=== PATIENT | male | born 1975 ===

== ENCOUNTER 2018-09-04 18:09 | Inpatient (IN) | payer OTHER ==
[2018-09-04 18:39] LABS: BASO # 0.1 K/uL (0.0-0.2); BASO % 0.9 % (0.0-2.0); EOS # 0.2 K/uL (0.0-0.7); EOS % 1.6 % (0.0-4.0); HEMOGLOBIN 15.2 g/dL (12.0-18.0); LYMPH # 3.2 K/uL (1.0-4.3); LYMPH % 31.8 % (20.0-40.0); MEAN CELL VOLUME 86.8 fl (80.0-94.0); MEAN CORPUSCULAR HEMOGLOBIN 29.9 pg (27.0-31.0); MEAN CORPUSCULAR HGB CONC 34.5 g/dL (33.0-37.0); MEAN PLATELET VOLUME 7.5 fl (7.2-11.7); MONO # 0.6 K/uL (0.0-0.8); MONO % 5.8 % (0.0-10.0); NEUT % 59.9 % (50.0-75.0); NRBC % 0.1 % (0.0-0.0); RBC 5.08 Mil/uL (4.40-5.90); RED CELL DISTRIBUTION WIDTH 13.3 % (11.5-14.5); WHITE BLOOD COUNT 10.1 K/uL (4.8-10.8)
[2018-09-04] MEDS ORDERED: Sodium Chloride 0.9% 1,000 ML IV STA (18:44)
[2018-09-04 18:48] LABS: BLOOD UREA NITROGEN 15 mg/dl (9-20); CALCIUM 9.9 mg/dL (8.4-10.2); GFR NON-AFRICAN AMERICAN > 60
[2018-09-04 19:15] LABS: BARBITURATES, UR NEGATIVE (NEGATIVE); BENZODIAZEPINES, UR NEGATIVE (NEGATIVE); OPIATES, UR NEGATIVE (NEGATIVE); PHENCYCLIDINE, UR NEGATIVE (NEGATIVE)
--- NOTE | 2018-09-04 19:48 | ED PDOC ---
HPI:STROKE - Time Time: 18:15 - Historian Historian: Patient - Chief Complaint Chief Complaint: Numbness (left facial numbness) - Onset Date: 09/04/18 Time: 18:15 - Location Locate left: Face - Notes: Notes:: Narinder Cardenas is a 43 year old male with no past medical history who is presenting to the ED for evaluation of left facial numbness onset 10 minutes prior to arrival. Patient also complains of a headache since this morning, with pain localized to the back of the head. He states that the left side of his face feels numb and heavy. Patient denies any weakness of extremities, dizziness, or confusion. Of note, patient was recently incarcerated and has not followed up with a doctor since then. Patient also attends rehab for a pinched nerve in the right thigh; he has occasional weakness to both legs. Patient denies any sick contacts or recent illness. PMD: none NIHSS Stroke Scale - Date/Time Evaluation Performed Date Performed: 09/04/18 - How Severe is the Stroke Level of Consciousness: 0=Alert LOC to Questions: 0=Both comments correct LOC to commands: 0=Obeys both correctly Best Gaze: 0=Normal Visual: 0=No visual loss Facial: 1=Minor asymmetry (numbness to left side of face) Motor Arm - Left: 0=No drift Motor Arm - Right: 0=No drift Motor Leg - Left: 0=No drift (Proprioception intact, left leg drift however at baselines has leg weakness unclear if new) Motor Leg - Right: 0=No drift Limb Ataxia: 0=Absent Sensory: 0=Normal Best Language: 0=No aphasia Dysarthia: 0=Normal articulation Extinction & Inattention (Neglect): 0=Normal, no object Score: 1 rTPA Inclusion/Exclusion - Refusal of Treatment Patient Refused Treatment: No - Inclusion Criteria for Altepase Patient is 18 years or Older: Yes The Clinical Diagnosis of Ischemic Stroke That is Causing a Potentially Disabling Neurological Deficit: No Time of Onset is Well Established to be Less Than 270 Minute Before Treatment Would Begin: No Risk/Benefit Discussed With Patient/Family Member Present: Yes - Warning to TPA With Conditions Following Conditions Weighed Against Anticipated Benefit: Yes Condition: Stroke Serevity Too Mild (Most likely not a stroke. Symptoms are subjective without findings on physical exam.) Past Medical History Reviewed: Historical Data, Nursing Documentation, Vital Signs Vital Signs: Last Vital Signs Temp Pulse 61 09/04/18 19:21 Resp 16 09/04/18 19:21 BP 148/87 09/04/18 19:21 Pulse Ox 100 09/04/18 19:21 - Medical History PMH: No Chronic Diseases - Surgical History Surgical History: No Surg Hx - Family History Family History: States: Unknown Family Hx - Social History Current smoker - smoking cessation education provided: No Alcohol: None Drugs: Denies - Home Medications Home Medications: Ambulatory Orders Medication Instructions Recorded Acetaminophen/Hydrocodone Bi 1 tab PO PRN PRN 09/04/18 [Vicodin 300 mg-5 mg] Naproxen [Naprosyn] 500 mg PO PRN PRN 09/04/18 - Allergies Allergies/Adverse Reactions: Allergies Allergy/AdvReac Type Severity Reaction Status Date / Time ibuprofen Allergy RASH Verified 09/04/18 18:16 Review of Systems ROS Statement: Except As Marked, All Systems Reviewed And Found Negative Constitutional: Negative for: Other (recent illness) Neurological: Positive for: Numbness (left side of face), Headache. Negative for: Confusion, Dizziness Physical Exam - Reviewed Nursing Documentation Reviewed: Yes Vital Signs Reviewed: Yes - Physical Exam Appears: Positive for: Non-toxic, No Acute Distress Head Exam: Positive for: ATRAUMATIC, NORMAL INSPECTION, NORMOCEPHALIC Skin: Positive for: Normal Color, Warm, Dry Eye Exam: Positive for: EOMI, Normal appearance, PERRL ENT: Positive for: Normal ENT Inspection Neck: Positive for: Normal, Painless ROM, Supple Cardiovascular/Chest: Positive for: Regular Rate, Rhythm. Negative for: Murmur Respiratory: Positive for: Normal Breath Sounds. Negative for: Accessory Muscle Use, Respiratory Distress Gastrointestinal/Abdominal: Positive for: Normal Exam, Soft. Negative for: Tenderness Back: Positive for: Normal Inspection Extremity: Positive for: Normal ROM. Negative for: Deformity, Swelling Neurologic/Psych: Positive for: Alert, sanitarian inspector II-XII (intact), Oriented. Negative for: Motor/Sensory Deficits - Laboratory Results Result Diagrams: 09/04/18 18:30 09/04/18 18:30 - ECG O2 Sat by Pulse Oximetry: 100 (RA) Pulse Ox Interpretation: Normal - Critical Care Total Time (In Min): 30 Medical Decision Making Medical Decision Making: Code Stroke called at 18:15 A/P: Work up for acute stroke --Labs, brain CT --Neurology Consult 19:00 --Spoke with Dr. Cali. Based on no findings on CT and no objective findings on physical; exam, most likely not a stroke. --TPA not warranted, will give medication for headache, aspirin, and BP meds as needed. --Reevaluate patient --Admission to medical service. --Per Dr. Cali, patient to have MRI tomorrow. ----- Scribe Attestation: Documented by, Ciera Mcmanus acting as a scribe for Stephanie Joe MD. Provider Scribe Attestation: All medical record entries made by the Scribe were at my direction and personall y dictated by me. I have reviewed the chart and agree that the record accurately reflects my personal performance of the history, physical exam, medical decision making, and the department course for this patient. I have also personally directed, reviewed, and agree with the discharge instructions and disposition. Disposition - Clinical Impression Clinical Impression: Headache - Patient ED Disposition Is Patient to be Admitted: Yes - Disposition Disposition Time: 19:35 Condition: GUARDED
[2018-09-05] MEDS ORDERED: Oxycodone/Acetaminophen 5/325 mg Tab PO PRN (01:59)
[2018-09-05] MEDS: Enoxaparin 40 mg Syringe SC SCH (09:46)
[2018-09-05] MEDS: Naproxen 500 MG TAB PO SCH ×2 (09:47→20:25)
--- NOTE | 2018-09-05 10:00 | CT ---
Date of service: 09/04/2018 PROCEDURE: CT HEAD WITHOUT CONTRAST. HISTORY: left facial and leg numbness COMPARISON: None available. TECHNIQUE: Axial computed tomography images were obtained through the head/brain without intravenous contrast. Radiation dose: Total exam DLP = 825.36 mGy-cm. This CT exam was performed using one or more of the following dose reduction techniques: Automated exposure control, adjustment of the mA and/or kV according to patient size, and/or use of iterative reconstruction technique. FINDINGS: HEMORRHAGE: No intracranial hemorrhage. BRAIN: No mass effect or edema. No atrophy or chronic microvascular ischemic changes. VENTRICLES: Unremarkable. No hydrocephalus. CALVARIUM: Unremarkable. PARANASAL SINUSES: Unremarkable as visualized. No significant inflammatory changes. MASTOID AIR CELLS: Unremarkable as visualized. No inflammatory changes. OTHER FINDINGS: None. IMPRESSION: No evidence of acute intracranial hemorrhage territorial infarct mass effect or midline shift. If clinically warranted and if the patient's symptoms persist further assessment by MRI diffusion-weighted images may be obtained. Preliminary report was submitted by [facility] at 6:30 p.m. on 09/04/2018
--- NOTE | 2018-09-05 14:29 | CP.PCM.HP ---
History of Present Illness - History of Present Illness History of Present Illness: CC: JOEL and Facial Numbness History of Present Illness; A 43 year old male with no past medical history who is presenting to the ED for evaluation of left facial numbness onset 10 minutes prior to arrival. Patient also complains of a headache since this morning, with pain localized to the back of the head. He states that the left side of his face feels numb and heavy. Patient denies any weakness of extremities, dizziness, or confusion. Of note, patient was recently incarcerated and has not followed up with a doctor since then. Patient also attends rehab for a pinched nerve in the right thigh; he has occasional weakness to both legs. Patient denies any sick contacts or recent illness. Present on Admission - Present on Admission Any Indicators Present on Admission: No Review of Systems - Review of Systems All systems: reviewed and no additional remarkable complaints except Review of Systems: as per HPI Past Patient History - Past Medical History & Family History Past Medical History?: No Past Family History: Reviewed and not pertinent - Past Social History Smoking Status: Never Smoked Alcohol: Social Drugs: Denies - CARDIAC Hx Cardiac Disorders: No - PULMONARY Hx Respiratory Disorders: No - NEUROLOGICAL Hx Neurological Disorder: No - HEENT Hx HEENT Problems: No - RENAL Hx Chronic Kidney Disease: No - ENDOCRINE/METABOLIC Hx Endocrine Disorders: No - HEMATOLOGICAL/ONCOLOGICAL Hx Blood Disorders: No - INTEGUMENTARY Hx Dermatological Problems: No - MUSCULOSKELETAL/RHEUMATOLOGICAL Hx Musculoskeletal Disorders: No Hx Falls: No - GENITOURINARY/GYNECOLOGICAL Hx Genitourinary Disorders: No - PSYCHIATRIC Hx Psychophysiologic Disorder: No Hx Substance Use: No - ANESTHESIA Hx Anesthesia: No Meds Allergies/Adverse Reactions: Allergies Allergy/AdvReac Type Severity Reaction Status Date / Time ibuprofen Allergy RASH Verified 09/04/18 18:16 Physical Exam - Constitutional Appears: Well, No Acute Distress - Head Exam Head Exam: ATRAUMATIC, NORMAL INSPECTION, NORMOCEPHALIC - Eye Exam Eye Exam: EOMI, Normal appearance, PERRL Pupil Exam: NORMAL ACCOMODATION, PERRL - ENT Exam ENT Exam: Mucous Membranes Moist, Normal Exam - Neck Exam Neck exam: Positive for: Normal Inspection - Respiratory Exam Respiratory Exam: Clear to Auscultation Bilateral, NORMAL BREATHING PATTERN - Cardiovascular Exam Cardiovascular Exam: REGULAR RHYTHM, +S1, +S2 - GI/Abdominal Exam GI & Abdominal Exam: Normal Bowel Sounds, Soft. absent: Tenderness - Extremities Exam Extremities exam: Positive for: normal capillary refill, normal inspection - Back Exam Back exam: NORMAL INSPECTION - Neurological Exam Neurological exam: Alert, CN II-XII Intact, Normal Gait, Oriented x3, Reflexes Normal - Psychiatric Exam Psychiatric exam: Normal Affect, Normal Mood - Skin Skin Exam: Dry, Intact, Normal Color, Warm Results - Vital Signs Recent Vital Signs: Last Vital Signs Temp 98.1 F 09/05/18 09:49 Pulse 67 09/05/18 09:49 Resp 18 09/05/18 09:49 BP 125/84 09/05/18 09:49 Pulse Ox 100 09/05/18 09:49 - Labs Result Diagrams: 09/04/18 18:30 09/04/18 18:30 Labs: Laboratory Results - last 24 hr 09/04/18 09/04/18 09/04/18 18:17 18:30 18:30 WBC 10.1 RBC 5.08 Hgb 15.2 Hct 44.1 MCV 86.8 MCH 29.9 MCHC 34.5 RDW 13.3 Plt Count 311 MPV 7.5 Neut % (Auto) 59.9 Lymph % (Auto) 31.8 [place] % (Auto) 5.8 Eos % (Auto) 1.6 Baso % (Auto) 0.9 Neut # (Auto) 6.0 Lymph # (Auto) 3.2 [place] # (Auto) 0.6 Eos # (Auto) 0.2 Baso # (Auto) 0.1 Sodium 140 Potassium 4.0 Chloride 103 Carbon Dioxide 30 Anion Gap 11 BUN 15 Creatinine 0.8 Est GFR ( Amer) > 60 Est GFR (Non-Af Amer) > 60 POC Glucose (mg/dL) 117 H Random Glucose 93 Calcium 9.9 Troponin I < 0.0120 Urine Opiates Screen Urine Methadone Screen Ur Barbiturates Screen Ur Phencyclidine Scrn Ur Amphetamines Screen U Benzodiazepines Scrn U Oth Cocaine Metabols U Cannabinoids Screen Alcohol, Quantitative < 10 09/04/18 18:40 WBC RBC Hgb Hct MCV MCH MCHC RDW Plt Count MPV Neut % (Auto) Lymph % (Auto) [place] % (Auto) Eos % (Auto) Baso % (Auto) Neut # (Auto) Lymph # (Auto) [place] # (Auto) Eos # (Auto) Baso # (Auto) Sodium Potassium Chloride Carbon Dioxide Anion Gap BUN Creatinine Est GFR ( Amer) Est GFR (Non-Af Amer) POC Glucose (mg/dL) Random Glucose Calcium Troponin I Urine Opiates Screen Negative Urine Methadone Screen Negative Ur Barbiturates Screen Negative Ur Phencyclidine Scrn Negative Ur Amphetamines Screen Negative U Benzodiazepines Scrn Negative U Oth Cocaine Metabols Negative U Cannabinoids Screen Negative Alcohol, Quantitative - Imaging and Cardiology CT scan - head Status: Report reviewed by me Additional comment: Date of service: 09/04/2018 PROCEDURE: CT HEAD WITHOUT CONTRAST. HISTORY: left facial and leg numbness COMPARISON: None available. TECHNIQUE: Axial computed tomography images were obtained through the head/brain without intravenous contrast. Radiation dose: Total exam DLP = 825.36 mGy-cm. This CT exam was performed using one or more of the following dose reduction techniques: Automated exposure control, adjustment of the mA and/or kV according to patient size, and/or use of iterative reconstruction technique. FINDINGS: HEMORRHAGE: No intracranial hemorrhage. BRAIN: No mass effect or edema. No atrophy or chronic microvascular ischemic changes. VENTRICLES: Unremarkable. No hydrocephalus. CALVARIUM: Unremarkable. PARANASAL SINUSES: Unremarkable as visualized. No significant inflammatory changes. MASTOID AIR CELLS: Unremarkable as visualized. No inflammatory changes. OTHER FINDINGS: None. IMPRESSION: No evidence of acute intracranial hemorrhage territorial infarct mass effect or midline shift. If clinically warranted and if the patient's symptoms persist further assessment by MRI diffusion-weighted images may be obtained. Chest x-ray Status: Report reviewed by me Additional comment: Date of service: 09/04/2018 PROCEDURE: CHEST RADIOGRAPH, 1 VIEW HISTORY: possible stroke COMPARISON: None available. FINDINGS: LUNGS: No evidence of focal infiltrate or consolidation in the lungs PLEURA: No pneumothorax or pleural fluid seen. CARDIOVASCULAR: Normal. OSSEOUS STRUCTURES: No significant abnormalities. VISUALIZED UPPER ABDOMEN: Normal. OTHER FINDINGS: None. IMPRESSION: Suboptimal study due to the patient's body habitus. No definite evidence of acute pulmonary disease. Assessment & Plan (1) Headache Status: Acute Priority: Medium (2) Difficulty with speech Status: Acute Priority: Medium (3) Left upper extremity numbness Status: Acute Priority: High (4) Left facial numbness Status: Acute Priority: Medium - Assessment and Plan (Free Text) Plan: ASA Statin Neuro-check Q4hrs MRI w/o & w Contrast Echo Carotid Doppler Fasting Lipid Profile HgA1C Neurology Consult Tylenol PRN
--- NOTE | 2018-09-05 16:17 | RAD ---
Date of service: 09/04/2018 PROCEDURE: CHEST RADIOGRAPH, 1 VIEW HISTORY: possible stroke COMPARISON: None available. FINDINGS: LUNGS: No evidence of focal infiltrate or consolidation in the lungs PLEURA: No pneumothorax or pleural fluid seen. CARDIOVASCULAR: Normal. OSSEOUS STRUCTURES: No significant abnormalities. VISUALIZED UPPER ABDOMEN: Normal. OTHER FINDINGS: None. IMPRESSION: Suboptimal study due to the patient's body habitus. No definite evidence of acute pulmonary disease.
--- NOTE | 2018-09-05 16:35 | CP.PCM.CON ---
History of Present Illness - History of Present Illness History of Present Illness: Neurology Consultation Note: Mr. 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 He asked his to help him to the bathroom, where he proceeded to use cold water and towels to wash his head and neck. Afterward, he had an episode of speech difficulty. He was brought in to the ED, where his symptoms started to resolve. Today, the patient is back to baseline and does not have any new complaints. However, he does still have the headache. He describes is at left occipital and temporal. It is a pulsating pain, but not associated with nausea, photophobia or phonophobia. It is a 7/10 in severity. Review of Systems - Constitutional Constitutional: As Per HPI - EENT Eyes: absent: As Per HPI, Blind Spots, Blurred Vision, Change in Vision, Decreased Night Vision, Diplopia, Discharge, Dry Eye, Exophthalmos, Floaters, Irritation, Itchy Eyes, Loss of Peripheral Vision, Pain, Photophobia, Requires Corrective Lenses, Sees Flashes, Spots in Vision, Tunnel Vision, Other Visual Disturbances, Loss of Vision, Other Ears: absent: As Per HPI, Decreased Hearing, Ear Discharge, Ear Pain, Tinnitus, Abnormal Hearing, Disequilibrium, Dizziness, Other Nose/Mouth/Throat: absent: As Per HPI, Epistaxis, Nasal Congestion, Nasal Discharge, Nasal Obstruction, Nasal Trauma, Nose Pain, Post Nasal Drip, Sinus Pain, Sinus Pressure, Bleeding Gums, Change in Voice, Dental Pain, Dry Mouth, Dysphagia, Halitosis, Hoarsness, Lip Swelling, Mouth Lesions, Mouth Pain, Odynophagia, Sore Throat, Throat Swelling, Tongue Swelling, Facial Pain, Neck Pain, Neck Mass, Other - Cardiovascular Cardiovascular: absent: As Per HPI, Acrocyanosis, Chest Pain, Chest Pain at Rest, Chest Pain with Activity, Claudication, Diaphoresis, Dyspnea, Dyspnea on Exertion, Edema, Irregular Heart Rhythm, Pain Radiating to Arm/Neck/Jaw, Leg Edema, Leg Ulcers, Lightheadedness, Orthopnea, Palpitations, Paroxysmal Nocturnal Dyspnea, Pedal Edema, Radiating Pain, Rapid Heart Rate, Slow Heart Rate, Syncope, Other - Respiratory Respiratory: absent: As Per HPI, Cough, Dyspnea, Hemoptysis, Dyspnea on Exertion, Wheezing, Snoring, Stridor, Pain on Inspiration, Chest Congestion, Excessive Mucous Production, Change in Mucous Color, Pain with Coughing, Other - Gastrointestinal Gastrointestinal: absent: As Per HPI, Abdominal Pain, Belching, Bloating, Change in Bowel Habits, Change in Stool Character, Coffee Ground Emesis, Constipation, Cramping, Diarrhea, Dyspepsia, Dysphagia, Early Satiety, Excessive Flatus, Fecal Incontinence, Heartburn, Hematemesis, Hematochezia, Loose Stools, Melena, Nausea, Odynophagia, Temesmus, Vomiting, Other - Genitourinary Genitourinary: absent: As Per HPI, Change in Urinary Stream, Difficulty Urinating, Dysuria, Flank Pain, Hematuria, Pyuria, Nocturia, Urinary Incontinence, Urinary Frequency, Urinary Hesitance, Urinary Urgency, Voiding Freq/Small Amts, Freq UTI, Hx Renal/Bladder Calculi, Hx /Renal Surgery, B ladder Distension, Other - Musculoskeletal Musculoskeletal: absent: As Per HPI, Abnormal Gait, Arthralgias, Atrophy, Back Pain, Deformity, Joint Swelling, Limited Range of Motion, Loss of Height, Muscle Cramps, Muscle Weakness, Myalgias, Neck Pain, Numbness, Radiating Pain into Limb, Stiffness, Tingling, Other - Integumentary Integumentary: absent: As Per HPI, Acne, Alopecia, Bleeding Lesions, Change in Hair, Change in Nails, Change in Pigmentation, Changing Lesions, Dry Skin, Erythema, Furuncle, Hirsutism, Lesions, New Lesions, Non-Healing Lesions, Photosensitivity, Pruritus, Rash, Skin Pain, Skin Ulcer, Sores, Striae, Swelling, Unusual Bruising, Wounds, Jaundice, Other - Neurological Neurological: As Per HPI - Psychiatric Psychiatric: absent: As Per HPI, Abnormal Sleep Pattern, Anhedonia, Anxiety, Auditory Hallucinations, Behavioral Changes, Change in Appetite, Change in Libido, Confusion, Depression, Difficulty Concentrating, Hallucinations, Homicidal Ideation, Hopelessness, Irritability, Memory Loss, Mood Swings, Panic Attacks, Paranoia, Suicidal Ideation, Visual Hallucinations, Tactile Hallucinations, Other - Endocrine Endocrine: absent: As Per HPI, Change in Body Appearance, Change in Libido, Cold Intolorance, Deepening of Voice, Excessive Sweating, Fatigue, Flushing, Heat Intolorance, Increase in Ring/Shoe/Hat Size, Palpitations, Polydipsia, Polyphagia, Polyuria, Other Past Patient History - Past Social History Alcohol: None Drugs: Denies - CARDIAC Hx Cardiac Disorders: No - PULMONARY Hx Respiratory Disorders: No - NEUROLOGICAL Hx Neurological Disorder: No - HEENT Hx HEENT Problems: No - RENAL Hx Chronic Kidney Disease: No - ENDOCRINE/METABOLIC Hx Endocrine Disorders: No - HEMATOLOGICAL/ONCOLOGICAL Hx Blood Disorders: No - INTEGUMENTARY Hx Dermatological Problems: No - MUSCULOSKELETAL/RHEUMATOLOGICAL Hx Musculoskeletal Disorders: No Hx Falls: No - GENITOURINARY/GYNECOLOGICAL Hx Genitourinary Disorders: No - PSYCHIATRIC Hx Psychophysiologic Disorder: No Hx Substance Use: No - ANESTHESIA Hx Anesthesia: No Meds Allergies/Adverse Reactions: Allergies Allergy/AdvReac Type Severity Reaction Status Date / Time ibuprofen Allergy RASH Verified 09/04/18 18:16 - Medications Medications: Current Medications Aspirin (Aspirin) 325 mg PO DAILY [facility] Last Admin: 09/05/18 09:47 Dose: 325 mg Enoxaparin Sodium (Lovenox) 40 mg SC DAILY [facility]; Protocol Last Admin: 09/05/18 09:46 Dose: 40 mg Naproxen (Naproxen) 500 mg PO Q12 [facility] Last Admin: 09/05/18 09:47 Dose: 500 mg Oxycodone/Acetaminophen (Percocet 5/325 Mg Tab) 1 tab PO Q6 PRN PRN Reason: Pain, moderate (4-7) Stop: 09/08/18 02:00 Physical Exam - Constitutional Appears: Well - Head Exam Head Exam: ATRAUMATIC, NORMAL INSPECTION, NORMOCEPHALIC - Eye Exam Eye Exam: EOMI, Normal appearance, PERRL - ENT Exam ENT Exam: Mucous Membranes Moist, Normal Exam - Respiratory Exam Respiratory Exam: Clear to Auscultation Bilateral, NORMAL BREATHING PATTERN - Cardiovascular Exam Cardiovascular Exam: REGULAR RHYTHM, +S1, +S2 - GI/Abdominal Exam GI & Abdominal Exam: Normal Bowel Sounds, Soft. absent: Tenderness - Rectal Exam Rectal Exam: Deferred - Back Exam Back exam: NORMAL INSPECTION - Neurological Exam Neurological exam: Alert, CN II-XII Intact, Normal Gait, Oriented x3, Reflexes Normal - Psychiatric Exam Psychiatric exam: Normal Affect, Normal Mood - Skin Skin Exam: Dry, Intact, Normal Color, Warm Results - Vital Signs Recent Vital Signs: Last Vital Signs Temp 98.1 F 09/05/18 09:49 Pulse 67 09/05/18 09:49 Resp 18 09/05/18 09:49 BP 125/84 09/05/18 09:49 Pulse Ox 100 09/05/18 15:30 - Labs Result Diagrams: 09/04/18 18:30 09/04/18 18:30 Labs: Laboratory Results - last 24 hr 09/04/18 09/04/18 09/04/18 18:17 18:30 18:30 WBC 10.1 RBC 5.08 Hgb 15.2 Hct 44.1 MCV 86.8 MCH 29.9 MCHC 34.5 RDW 13.3 Plt Count 311 MPV 7.5 Neut % (Auto) 59.9 Lymph % (Auto) 31.8 [place] % (Auto) 5.8 Eos % (Auto) 1.6 Baso % (Auto) 0.9 Neut # (Auto) 6.0 Lymph # (Auto) 3.2 [place] # (Auto) 0.6 Eos # (Auto) 0.2 Baso # (Auto) 0.1 Sodium 140 Potassium 4.0 Chloride 103 Carbon Dioxide 30 Anion Gap 11 BUN 15 Creatinine 0.8 Est GFR ( Amer) > 60 Est GFR (Non-Af Amer) > 60 POC Glucose (mg/dL) 117 H Random Glucose 93 Calcium 9.9 Troponin I < 0.0120 Urine Opiates Screen Urine Methadone Screen Ur Barbiturates Screen Ur Phencyclidine Scrn Ur Amphetamines Screen U Benzodiazepines Scrn U Oth Cocaine Metabols U Cannabinoids Screen Alcohol, Quantitative < 10 09/04/18 18:40 WBC RBC Hgb Hct MCV MCH MCHC RDW Plt Count MPV Neut % (Auto) Lymph % (Auto) [place] % (Auto) Eos % (Auto) Baso % (Auto) Neut # (Auto) Lymph # (Auto) [place] # (Auto) Eos # (Auto) Baso # (Auto) Sodium Potassium Chloride Carbon Dioxide Anion Gap BUN Creatinine Est GFR ( Amer) Est GFR (Non-Af Amer) POC Glucose (mg/dL) Random Glucose Calcium Troponin I Urine Opiates Screen Negative Urine Methadone Screen Negative Ur Barbiturates Screen Negative Ur Phencyclidine Scrn Negative Ur Amphetamines Screen Negative U Benzodiazepines Scrn Negative U Oth Cocaine Metabols Negative U Cannabinoids Screen Negative Alcohol, Quantitative Assessment & Plan (1) Left facial numbness Status: Resolved (2) Difficulty with speech Status: Resolved (3) Headache Assessment and Plan: His symptoms are consistent with a complicated migraine. Treatment will be initiated. However, due to his history of previous seizures, further work-up is needed. I recommend the followin. Telemetry 2. MRI brain without contrast when possible. 3. Echocardiogram with bubble study 4. EEG awake and drowsy for 30 minutes. 5. Check hemoglobin A-1 C, lipid panel, ESR, CRP, JERED, B12, folate, TSH, vitamin D levels 6. Treat headache with Magnesium Sulfate 2 grams, Decadron 10 mg and Depakote 500 mg IV ONCE. Aspirin 81 mg daily 7. Q 4 hour neuro-checks. 8. May begin to normalize BP Please do not hesitate to call back with any new developments, data updates or questions. Thank you for the opportunity to participate in the care of this patient. Status: Acute
--- NOTE | 2018-09-05 17:07 | CARD ---
APPROVED REPORT Date of service: 09/04/2018 EKG Measurement Heart [id number] <Conclusion> Normal sinus rhythm Early repolarization Otherwise normal ECG
[2018-09-06] MEDS ORDERED: Gadodiamide 287 MG/ML VIAL (15ML) IV ONE (10:41)
[2018-09-06] MEDS: Enoxaparin 40 mg Syringe SC SCH (11:35)
[2018-09-06] MEDS: Naproxen 500 MG TAB PO SCH ×2 (11:35→20:55)
[2018-09-06] MEDS ORDERED: Dexamethasone 10 MG in Sodium Chloride 0.9% 50 ML IVPB ONE (12:13)
[2018-09-06] MEDS ORDERED: Magnesium Sulfate 2 gm/50 ml 2 GM/50 ML BAG IVPB ONE (12:13)
[2018-09-06] MEDS ORDERED: Valproate 500 MG in Sodium Chloride 0.9% 100 ML IVPB ONE (12:30)
--- NOTE | 2018-09-06 14:25 | MRI ---
Date of service: 09/06/2018 PROCEDURE: MR CERVICAL SPINE WITHOUT CONTRAST HISTORY: JOEL and Numbness to the Face, and LE Weakness COMPARISON: None available. TECHNIQUE: Multiecho multiplanar sequences were performed through the cervical spine without the use of intravenous contrast. FINDINGS: Straightened cervical curvature. Craniocervical junction unremarkable. Vertebral body heights preserved. Dark marrow signal is appreciated throughout the cervical spine in all sequences, which can be seen in anemia or other hematopoietic disorders. Clinically correlate further. No edema is appreciated Normal cervical cord. No paraspinal abnormality. C2-C3: No disc herniation, spinal canal stenosis or neural foraminal narrowing. C3-C4: No disc herniation, spinal canal stenosis or neural foraminal narrowing. C4-C5: No disc herniation, spinal canal stenosis or neural foraminal narrowing. C5-C6: No disc herniation, spinal canal stenosis or neural foraminal narrowing. C6-C7: No disc herniation, spinal canal stenosis or neural foraminal narrowing. Limited C6-7 generalized disc bulging without stenosis resulting. C7-T1: No disc herniation, spinal canal stenosis or neural foraminal narrowing. OTHER FINDINGS: None. IMPRESSION: No disc herniation, central canal or neural foraminal stenosis identified. Straightened curvature evident. Limited C6-7 disc bulge. Dark matter signal cross all sequences may indicate anemia or other hematopoetic disorder. Clinically correlate further. No additional findings.
--- NOTE | 2018-09-06 14:26 | MRI ---
Date of service: 09/06/2018 PROCEDURE: MRI BRAIN WITH AND WITHOUT CONTRAST HISTORY: Numbness and JOEL, and LE weakness COMPARISON: Noncontrast head CT 09/04/2018. TECHNIQUE: Multiplanar, multisequence MR images of the brain were obtained with and without intravenous contrast enhancement. FINDINGS: HEMORRHAGE: None DWI: No evidence of an acute or early subacute infarction. BRAIN PARENCHYMA: There are multifocal areas of sub cm long TR hyperintensities scattered throughout the subcortical and deep white matter of the bilateral frontal lobes and minimally affect the bilateral parietal lobes with borderline involvement of the bilateral sides of the body of the corpus callosum. No abnormal enhancement is seen throughout the brain including the posterior fossa contents. Nevertheless, this pattern is suspicious for potential demyelination though it may result from headaches or hypertension, Lyme disease vasculitis as well as other etiologies. No mass effect or suspicious extra-axial collection appreciated. ENHANCEMENT: No abnormal intracranial enhancement. VENTRICLES: Unremarkable. No hydrocephalus. CRANIUM: Unremarkable. ORBITS: Grossly unremarkable. PARANASAL SINUSES/MASTOIDS: Clear VASCULAR SYSTEM: Skull base flow voids intact. OTHER FINDINGS: None . IMPRESSION: 1. Abnormal white matter changes are identified in the bilateral frontal greater than parietal lobes of the pattern that is nonspecific but could reflect demyelination, migraine headaches, hypertension, Lyme disease vasculitis and others. Further clinical correlation is advised. 2. No abnormal intracranial enhancement. 3. No acute or subacute brain infarction mass effect or hydrocephalus.
[2018-09-06 21:09] LABS: LYME IGG NEGATIVE (NEGATIVE)
[2018-09-06 22:10] LABS: FOLATE 10.3 ng/mL
[2018-09-07] MEDS: Enoxaparin 40 mg Syringe SC SCH (09:52)
[2018-09-07] MEDS: Naproxen 500 MG TAB PO SCH ×2 (09:53→21:35)
--- NOTE | 2018-09-07 11:42 | CP.PCM.PN ---
Subjective - Date & Time of Evaluation Date of Evaluation: 09/06/18 Time of Evaluation: 15:25 Objective - Vital Signs/Intake and Output Vital Signs (last 24 hours): Temp Pulse Resp BP Pulse Ox 97.7 F 82 18 133/81 95 09/07/18 08:30 09/07/18 08:30 09/07/18 08:30 09/07/18 08:30 09/07/18 08:30 - Medications Medications: Current Medications Aspirin (Aspirin) 325 mg PO DAILY [facility] Last Admin: 09/07/18 09:52 Dose: 325 mg Enoxaparin Sodium (Lovenox) 40 mg SC DAILY [facility]; Protocol Last Admin: 09/07/18 09:52 Dose: 40 mg Naproxen (Naproxen) 500 mg PO Q12 [facility] Last Admin: 09/07/18 09:53 Dose: 500 mg Oxycodone/Acetaminophen (Percocet 5/325 Mg Tab) 1 tab PO Q6 PRN PRN Reason: Pain, moderate (4-7) Stop: 09/08/18 02:00 Last Admin: 09/05/18 18:15 Dose: 1 tab - Labs Labs: 09/04/18 18:30 09/04/18 18:30 Assessment and Plan (1) Headache Status: Acute (2) Difficulty with speech Status: Acute (3) Left upper extremity numbness Status: Acute (4) Left facial numbness Status: Acute
--- NOTE | 2018-09-07 15:31 | CARD ---
APPROVED REPORT Date of service: 09/07/2018 EXAM: Two-dimensional and M-mode echocardiogram with Doppler, color Doppler with bubble study. Other Information Quality : GoodRhythm : NSR INDICATION Fascial Numbness Echo Enhancing Agent Indication: Rule Out Septal Defect Agent/Amount Used: Agitated Saline 2D DIMENSIONS IVSd1.30 (0.7-1.1cm)LVDd4.24 (3.9-5.9cm) LVOT Diameter2.20 (1.8-2.4cm)PWd1.11 (0.7-1.1cm) IVSs1.60 (0.8-1.2cm)LVDs2.35 (2.5-4.0cm) FS (%) 44.6 %PWs1.44 (0.8-1.2cm) M-Mode DIMENSIONS Left Atrium (MM)3.83 (2.5-4.0cm)IVSd1.02 (0.7-1.1cm) Aortic Root3.39 (2.2-3.7cm)LVDd4.94 (4.0-5.6cm) Aortic Cusp Exc.2.34 (1.5-2.0cm)PWd1.52 (0.7-1.1cm) IVSs1.93 cmFS (%) 48 % LVDs2.56 (2.0-3.8cm)PWs1.60 cm Aortic Valve AoV Peak Rwzkrinr045.4cm/sAoV VTI22.0cmAO Peak GR.7mmHg LVOT Peak Sqeiwzmj572.5cm/sLVOT VTI19.81cmAO Mean GR.4mmHg ABDULLAHI (VMAX)1.02wc6WYQ (VTI)1.71cm2 Mitral Valve MV E Vfegadqu39.8cm/sMV DECEL DNVL240kdPD A Esgvgvbs77.7cm/s MV HQA96iyY/A ratio1.1MVA (PHT)2.79cm2 TDI Lateral E' Peak V13.77cm/sMedial E' Peak V7.41cm/sE/Lateral E'5.1 E/Medial E'9.6 LEFT VENTRICLE The left ventricle is normal size. There is normal left ventricular wall thickness. The left ventricular systolic function is normal. The estimated ejection fraction is 60-65% No regional wall motion abnormalities noted.. The left ventricular diastolic function is normal. No left ventricle thrombus noted on this study. There is no ventricular septal defect visualized. There is no left ventricular aneurysm. There is no mass noted in the left ventricle. RIGHT VENTRICLE The right ventricle is normal size. There is normal right ventricular wall thickness. The right ventricular systolic function is normal. ATRIA The left atrium size is normal. The right atrium size is normal. The interatrial septum is intact with no evidence for an atrial septal defect. Consider KENYATTA if there is suspicion for PFO. AORTIC VALVE The aortic valve is normal in structure. No aortic regurgitation is present. There is no aortic valvular stenosis. There is no aortic valvular vegetation. MITRAL VALVE The mitral valve is normal in structure. There is no evidence of mitral valve prolapse. There is no mitral valve stenosis. There is no mitral valve regurgitation noted. TRICUSPID VALVE The tricuspid valve is normal in structure. There is no tricuspid valve regurgitation noted. There is no tricuspid valve prolapse or vegetation. There is no tricuspid valve stenosis. PULMONIC VALVE The pulmonary valve is normal in structure. There is no pulmonic valvular regurgitation. There is no pulmonic valvular stenosis. GREAT VESSELS The aortic root is normal in size. The ascending aorta is normal in size. The pulmonary artery is normal. The IVC is normal in size and collapses >50% with inspiration. PERICARDIAL EFFUSION There is no pericardial effusion. There is no pleural effusion. <Conclusion> The estimated ejection fraction is 60-65% The left ventricular diastolic function is normal. The left atrium size is normal. There is no atrial septal defect. Cannot rule out PFO, consider KENYATTA if clinically indicated.
--- NOTE | 2018-09-07 16:24 | PCM.EEG ---
Electroencephalogram Report - Electroencephalogram Report Procedure Date: 09/06/18 Condition of Recording: Awake, Drowsy, Asleep Medication: Tegretol Interpretation: Technical Information: This was a 21 -channel EEG, 1-channel EKG routine EEG performed using an [employer] machine. Electrodes were applied using the 10/20 international placement system. During active states, the EEG contained symmetric 10-20 Hz,20-30 uV activity seen bi-frontally. . During resting wakefulness there was a symmetric posterior dominant rhythm at 8.5-9.5 Hz, 30-50 uV, which was reactive to eye opening and closing. . Drowsiness was associated with fragmentation of the posterior dominant rhythm and with slow roving eye movements. Light sleep was recorded and was characterized by central vertex waves, sleep spindles, and bilateral theta slowing. Hyperventilation was not performed. Photic stimulation was performed and there was symmetric driving. Focal abnormality; none ECG was associated with a normal sinus rhythm. Impression: This is a normal awake drowsy and sleep electroencephalogram.
--- NOTE | 2018-09-07 20:25 | CP.PCM.PN ---
Subjective - Date & Time of Evaluation Date of Evaluation: 09/07/18 Time of Evaluation: 20:21 - Subjective Subjective: Mr. Sydnee Cardenas was seen and examined today at bedside. He said his headache is much improved. I discussed the MRI brain findings with him. They appear to be related to migraine headaches and unlikely to be MS. Patients with these findings may have a PFO. Objective - Vital Signs/Intake and Output Vital Signs (last 24 hours): Temp Pulse Resp BP Pulse Ox 98.5 F 90 16 110/64 96 09/07/18 16:40 09/07/18 16:40 09/07/18 16:40 09/07/18 16:40 09/07/18 16:40 - Medications Medications: Current Medications Aspirin (Aspirin) 325 mg PO DAILY [facility] Last Admin: 09/07/18 09:52 Dose: 325 mg Enoxaparin Sodium (Lovenox) 40 mg SC DAILY [facility]; Protocol Last Admin: 09/07/18 09:52 Dose: 40 mg Naproxen (Naproxen) 500 mg PO Q12 [facility] Last Admin: 09/07/18 09:53 Dose: 500 mg Oxycodone/Acetaminophen (Percocet 5/325 Mg Tab) 1 tab PO Q6 PRN PRN Reason: Pain, moderate (4-7) Stop: 09/08/18 02:00 Last Admin: 09/05/18 18:15 Dose: 1 tab - Labs Labs: 09/04/18 18:30 09/04/18 18:30 - Constitutional Appears: Well - Head Exam Head Exam: ATRAUMATIC, NORMAL INSPECTION, NORMOCEPHALIC - Eye Exam Eye Exam: EOMI, Normal appearance, PERRL Pupil Exam: NORMAL ACCOMODATION, PERRL - ENT Exam ENT Exam: Mucous Membranes Moist, Normal Exam - Neck Exam Neck Exam: Full ROM, Normal Inspection. absent: Lymphadenopathy - Respiratory Exam Respiratory Exam: Clear to Ausculation Bilateral, NORMAL BREATHING PATTERN - Cardiovascular Exam Cardiovascular Exam: REGULAR RHYTHM, +S1, +S2. absent: Murmur - GI/Abdominal Exam GI & Abdominal Exam: Soft, Normal Bowel Sounds. absent: Tenderness - Rectal Exam Rectal Exam: Deferred - Extremities Exam Extremities Exam: Full ROM, Normal Capillary Refill, Normal Inspection. absent: Joint Swelling, Pedal Edema - Back Exam Back Exam: NORMAL INSPECTION - Neurological Exam Neurological Exam: Awake, CN II-XII Intact, Motor Sensory Deficit, Normal Gait, Oriented x3 Neuro motor strength exam: Left Upper Extremity: 5, Right Upper Extremity: 5, Left Lower Extremity: 5, Right Lower Extremity: 5 - Psychiatric Exam Psychiatric exam: Normal Affect, Normal Mood - Skin Skin Exam: Dry, Intact, Normal Color, Warm Assessment and Plan (1) Left facial numbness Status: Resolved (2) Difficulty with speech Status: Resolved (3) Headache Assessment & Plan: Likely complicated migraine headache. Will start the patient on Topamax 25 mg BID and titrate up and will also start magnesium oxide 400 mg BID. Echocardiogram with bubble study is recommended for further evaluation for PFO. Outpatient neurology follow up will be needed. Since he is from [place], I gave him the name of Dr. Tiffani Figueroa, who is a local neurologist near the patient. Status: Acute
[2018-09-07] MEDS: Magnesium Oxide 400 mg Tab UD PO SCH (21:35)
[2018-09-08] MEDS: Magnesium Oxide 400 mg Tab UD PO SCH (09:05)
[2018-09-08] MEDS: Naproxen 500 MG TAB PO SCH (09:06)
[2018-09-08] MEDS: Enoxaparin 40 mg Syringe SC SCH (09:07)
[2018-09-08] MEDS ORDERED: Ergocalciferol 50,000 Intl Units Cap PO SCH (10:00)
--- NOTE | 2018-09-08 14:10 | CP.PCM.PCO ---
Assessment & Plan - Assessment and Plan (Free Text) Assessment: pt. doing well , headache improved, denies current h/a pt. s/p Echo w/ bubble study; report noted and d/w Dr.Faraz Perez reviewed echo and noted results wnl, KENYATTA not recommended pt. cleared for discharge to home today by , and pt to cont. Topamax 25 mg BID and titrate up, cont. magnesium oxide 400 mg BID Since pt. is from [place], pt. instructed to f/u with Dr. Tiffani Figueroa in [place] Rx for all meds provided Above discussed with both the patient and
--- NOTE | 2018-09-08 15:37 | CP.PCM.CON ---
History of Present Illness - History of Present Illness History of Present Illness: Consultation for evaluation of possible PFO HPI: 43-year-old male visiting from [place] started having severe excruciating headaches associated with some left-sided weakness and came to the emergency room concern for possible TIA what workup with the including echocardiogram which showed a possible atrial septal aneurysm concern for PFO was raised subsequently got an MRI of the brain which showed white matter changes in the frontal lobe with concern for possible demyelination versus Lyme disease. Clinically does not show any evidence of acute cerebral infarct. Echocardiogram was repeated with bubble studies which shows no evidence of crossover or any kind of shunting thereby excluding any evidence of pre-patent foramen ovale. Review of Systems - Review of Systems Systems not reviewed;Unavailable: Acuity of Condition - Constitutional Constitutional: As Per HPI - EENT Eyes: As Per HPI Ears: As Per HPI Nose/Mouth/Throat: As Per HPI - Cardiovascular Cardiovascular: As Per HPI - Respiratory Respiratory: As Per HPI - Gastrointestinal Gastrointestinal: As Per HPI - Genitourinary Genitourinary: As Per HPI - Reproductive: Male Reproductive:Male: As Per HPI - Musculoskeletal Musculoskeletal: As Per HPI - Integumentary Integumentary: As Per HPI - Neurological Neurological: As Per HPI - Psychiatric Psychiatric: As Per HPI - Endocrine Endocrine: As Per HPI - Hematologic/Lymphatic Hematologic: As Per HPI Past Patient History - Past Medical History & Family History Past Medical History?: No Past Family History: Reviewed and not pertinent - Past Social History Smoking Status: Never Smoked Alcohol: Social Drugs: Denies - CARDIAC Hx Cardiac Disorders: No - PULMONARY Hx Respiratory Disorders: No - NEUROLOGICAL Hx Neurological Disorder: No - HEENT Hx HEENT Problems: No - RENAL Hx Chronic Kidney Disease: No - ENDOCRINE/METABOLIC Hx Endocrine Disorders: No - HEMATOLOGICAL/ONCOLOGICAL Hx Blood Disorders: No - INTEGUMENTARY Hx Dermatological Problems: No - MUSCULOSKELETAL/RHEUMATOLOGICAL Hx Musculoskeletal Disorders: No Hx Falls: No - GENITOURINARY/GYNECOLOGICAL Hx Genitourinary Disorders: No - PSYCHIATRIC Hx Psychophysiologic Disorder: No Hx Substance Use: No - ANESTHESIA Hx Anesthesia: No Meds Home Medications: Home Medication List Medication Instructions Recorded Confirmed Type Aspirin [Adult Low Dose Aspirin EC] 81 mg PO DAILY #30 tablet. 09/08/18 Rx RX: Ergocalciferol [Drisdol 50,000 1 cap PO Q7D #4 cap 09/08/18 Rx Intl Units Cap] RX: Magnesium Oxide [Mag-Ox] 400 mg PO BID #60 tab 09/08/18 Rx RX: Naproxen 500 mg PO Q12 #60 tab 09/08/18 Rx RX: Topiramate [Topamax] 25 mg PO BID #60 tab 09/08/18 Rx Allergies/Adverse Reactions: Allergies Allergy/AdvReac Type Severity Reaction Status Date / Time ibuprofen Allergy RASH Verified 09/04/18 18:16 - Medications Medications: Current Medications Aspirin (Aspirin) 325 mg PO DAILY [facility] Last Admin: 09/08/18 09:05 Dose: 325 mg Enoxaparin Sodium (Lovenox) 40 mg SC DAILY [facility]; Protocol Last Admin: 09/08/18 09:07 Dose: 40 mg Ergocalciferol (Drisdol 50,000 Intl Units Cap) 1 cap PO Q7D [facility] Last Admin: 09/08/18 13:07 Dose: 1 cap Magnesium Oxide (Mag-Ox) 400 mg PO BID [facility] Last Admin: 09/08/18 09:05 Dose: 400 mg Naproxen (Naproxen) 500 mg PO Q12 [facility] Last Admin: 09/08/18 09:06 Dose: 500 mg Topiramate (Topamax) 25 mg PO BID [facility] Last Admin: 09/08/18 09:05 Dose: 25 mg Physical Exam - Constitutional Appears: Well - Head Exam Head Exam: ATRAUMATIC, NORMAL INSPECTION, NORMOCEPHALIC - Eye Exam Eye Exam: EOMI, Normal appearance, PERRL Pupil Exam: NORMAL ACCOMODATION, PERRL - ENT Exam ENT Exam: Mucous Membranes Moist, Normal Exam - Neck Exam Neck exam: Positive for: Normal Inspection - Respiratory Exam Respiratory Exam: Clear to Auscultation Bilateral, NORMAL BREATHING PATTERN - Cardiovascular Exam Cardiovascular Exam: REGULAR RHYTHM - GI/Abdominal Exam GI & Abdominal Exam: Normal Bowel Sounds, Soft. absent: Tenderness - Extremities Exam Extremities exam: Positive for: normal inspection - Back Exam Back exam: NORMAL INSPECTION - Neurological Exam Neurological exam: Alert, CN II-XII Intact, Normal Gait, Oriented x3, Reflexes Normal - Psychiatric Exam Psychiatric exam: Normal Affect, Normal Mood - Skin Skin Exam: Dry, Intact, Normal Color, Warm Results - Vital Signs Recent Vital Signs: Last Vital Signs Temp 98.0 F 09/08/18 12:43 Pulse 63 09/08/18 12:43 Resp 18 09/08/18 12:43 BP 126/81 09/08/18 12:43 Pulse Ox 98 09/08/18 12:43 - Labs Result Diagrams: 09/04/18 18:30 09/04/18 18:30 Labs: Laboratory Results - last 24 hr 09/06/18 15:38 JERED Nuclear Membr Pat Negative Assessment & Plan (1) PFO (patent foramen ovale) Assessment and Plan: Echo shows no evidence to suggest PFO with bubble study KENYATTA not indicated Status: Acute (2) Headache Status: Acute Priority: Medium (3) Left upper extremity numbness Status: Acute Priority: High (4) Difficulty with speech Status: Resolved Priority: Medium (5) Left facial numbness Status: Resolved Priority: Medium
[2018-09-08 15:57] LABS: LYME IGM NEGATIVE (NEGATIVE)
[2018-09-08 16:31] VITALS: BP 134/83; PULSE 68; RESP 16; TEMP 97.9; O2SAT 99
--- NOTE | 2018-09-09 00:03 | CP.PCM.PN ---
Subjective - Date & Time of Evaluation Date of Evaluation: 09/07/18 Time of Evaluation: 18:00 Objective - Vital Signs/Intake and Output Vital Signs (last 24 hours): Temp Pulse Resp BP Pulse Ox 97.9 F 68 16 134/83 99 09/08/18 16:30 09/08/18 16:30 09/08/18 16:30 09/08/18 16:30 09/08/18 16:30 - Labs Labs: 09/04/18 18:30 09/04/18 18:30 Assessment and Plan (1) Headache Status: Acute (2) Difficulty with speech Status: Resolved (3) Left upper extremity numbness Status: Acute (4) Left facial numbness Status: Resolved
--- NOTE | 2018-09-09 00:04 | CP.PCM.DIS ---
Provider - Provider Date of Admission: 09/06/18 15:16 Attending physician: Fariha Kearns MD Time Spent in preparation of Discharge (in minutes): 25 Diagnosis - Discharge Diagnosis (1) Headache Status: Acute Priority: Medium (2) Difficulty with speech Status: Resolved Priority: Medium (3) Left upper extremity numbness Status: Acute Priority: High (4) Left facial numbness Status: Resolved Priority: Medium Hospital Course - Lab Results Lab Results: Most Recent Lab Values WBC 10.1 K/uL (4.8-10.8) 09/04/18 18:30 RBC 5.08 Mil/uL (4.40-5.90) 09/04/18 18:30 Hgb 15.2 g/dL (12.0-18.0) 09/04/18 18:30 Hct 44.1 % (35.0-51.0) 09/04/18 18:30 MCV 86.8 fl (80.0-94.0) 09/04/18 18:30 MCH 29.9 pg (27.0-31.0) 09/04/18 18:30 MCHC 34.5 g/dL (33.0-37.0) 09/04/18 18:30 RDW 13.3 % (11.5-14.5) 09/04/18 18:30 Plt Count 311 K/uL (130-400) 09/04/18 18:30 MPV 7.5 fl (7.2-11.7) 09/04/18 18:30 Neut % (Auto) 59.9 % (50.0-75.0) 09/04/18 18:30 Lymph % (Auto) 31.8 % (20.0-40.0) 09/04/18 18:30 Lewis % (Auto) 5.8 % (0.0-10.0) 09/04/18 18:30 Eos % (Auto) 1.6 % (0.0-4.0) 09/04/18 18:30 Baso % (Auto) 0.9 % (0.0-2.0) 09/04/18 18:30 Neut # (Auto) 6.0 K/uL (1.8-7.0) 09/04/18 18:30 Lymph # (Auto) 3.2 K/uL (1.0-4.3) 09/04/18 18:30 Lewis # (Auto) 0.6 K/uL (0.0-0.8) 09/04/18 18:30 Eos # (Auto) 0.2 K/uL (0.0-0.7) 09/04/18 18:30 Baso # (Auto) 0.1 K/uL (0.0-0.2) 09/04/18 18:30 ESR 16 mm/hr (0-15) H 09/06/18 15:38 Sodium 140 mmol/l (132-148) 09/04/18 18:30 Potassium 4.0 MMOL/L (3.6-5.0) 09/04/18 18:30 Chloride 103 mmol/L (98-107) 09/04/18 18:30 Carbon Dioxide 30 mmol/L (22-30) 09/04/18 18:30 Anion Gap 11 (10-20) 09/04/18 18:30 BUN 15 mg/dl (9-20) 09/04/18 18:30 Creatinine 0.8 mg/dl (0.8-1.5) 09/04/18 18:30 Est GFR ( Amer) > 60 09/04/18 18:30 Est GFR (Non-Af Amer) > 60 09/04/18 18:30 POC Glucose (mg/dL) 117 mg/dL (65-110) H 09/04/18 18:17 Random Glucose 93 mg/dL (75-110) 09/04/18 18:30 Hemoglobin A1c 5.4 % (4.2-6.5) 09/06/18 15:38 Calcium 9.9 mg/dL (8.4-10.2) 09/04/18 18:30 Troponin I < 0.0120 ng/mL (0.00-0.120) 09/04/18 18:30 C-Reactive Protein < 5.00 mg/L (0.0-9.9) 09/06/18 15:38 Vitamin B12 324 pg/mL (239-931) 09/06/18 15:38 25-OH Vitamin D Total < 12.8 NG/ML (30.0-100.0) L 09/06/18 15:38 Folate 10.3 ng/mL 09/06/18 15:38 TSH 3rd Generation 4.42 mIU/ML (0.46-4.68) 09/06/18 15:38 Urine Opiates Screen Negative (NEGATIVE) 09/04/18 18:40 Urine Methadone Screen Negative (NEGATIVE) 09/04/18 18:40 Ur Barbiturates Screen Negative (NEGATIVE) 09/04/18 18:40 Ur Phencyclidine Scrn Negative (NEGATIVE) 09/04/18 18:40 Ur Amphetamines Screen Negative (NEGATIVE) 09/04/18 18:40 U Benzodiazepines Scrn Negative (NEGATIVE) 09/04/18 18:40 U Oth Cocaine Metabols Negative (NEGATIVE) 09/04/18 18:40 U Cannabinoids Screen Negative (NEGATIVE) 09/04/18 18:40 Alcohol, Quantitative < 10 mg/dl (0-10) 09/04/18 18:30 JERED Nuclear Membr Pat Negative (Negative) 09/06/18 15:38 Lyme Disease IgG Ab (IFA) Negative (NEGATIVE) 09/06/18 15:38 Lyme Disease IgM Ab Negative (NEGATIVE) 09/06/18 15:38 Discharge Exam - Head Exam Head Exam: ATRAUMATIC, NORMAL INSPECTION, NORMOCEPHALIC Discharge Plan - Discharge Medications Prescriptions: Aspirin [Adult Low Dose Aspirin EC] 81 mg PO DAILY #30 tablet. Ergocalciferol [Drisdol 50,000 Intl Units Cap] 1 cap PO Q7D #4 cap Magnesium Oxide [Mag-Ox] 400 mg PO BID #60 tab Naproxen 500 mg PO Q12 #60 tab Topiramate [Topamax] 25 mg PO BID #60 tab - Follow Up Plan Condition: GUARDED Disposition: HOME/ ROUTINE Instructions: Migraine Headache (DC) Additional Instructions: follow up with pmd in 1 week Referrals: Lamonte Cali MD [Medical Doctor] -
[2018-09-09] MEDS ORDERED: Cholecalciferol 1,000 INTLU TAB PO SCH (09:00)
== END 2018-09-08 17:00 | disposition home or self-care (01) | DRG 103 ==
LOC: H.ER 18:09 → H.ERHOLD 19:38 → H.TEL 20:33 → OBSVTOIN 09-06 15:16
PROVIDERS: ADMIT Internal Medicine; ATTEND Internal Medicine
DX: G43.109 Migraine with aura, not intractable, without status migrainosus (principal); G58.9 Mononeuropathy, unspecified; R20.0 Anesthesia of skin; Z79.82 Long term (current) use of aspirin; Z88.6 Allergy status to analgesic agent